=== PATIENT | female | born 1950 | race Caucasian/White ===

== ENCOUNTER → 2018-01-18 | Outpatient (CLI) | payer OTHER ==
[~2018-01-18] MED LIST: ATOR20TA PO; DIOVAN PO; FISH OIL PO; HYDR-3150 PO; IBUP200C5 PO; KRILL OIL PO; OXYC-302 PO; OXYC5TAB2 PO; VALS1TAB22 PO; VITAMIN D3 PO; VITAMIN E PO; ZOLP-413 PO
== END | disposition home or self-care (01) ==
LOC: CVU 13:41
PROVIDERS: ATTEND Physician Assistant
DX: I25.119 Atherosclerotic heart disease of native coronary artery with unspecified angina pectoris (principal); I10 Essential (primary) hypertension; I25.2 Old myocardial infarction
CPT/HCPCS: 93306